=== PATIENT | female | born 1945 | race Caucasian/White ===

== ENCOUNTER 2025-08-19 21:37 | Emergency (ER) | payer MEDICARE, BC, SELFPAY ==
[2025-08-19] VITALS (11 sets, daily range): BP systolic 178–220; BP diastolic 74–92; PULSE 68–74; RESP 12–16; TEMP 36.2; O2SAT 96–100; BMI 22.6
--- NOTE | 2025-08-19 22:14 | ED_ITS ---
HPI - Dizziness General Chief Complaint: Dizziness Stated Complaint: Dizziness, headache Time Seen by Provider: 08/19/25 22:13 Source: patient and family Mode of arrival: Ambulatory History of Present Illness HPI Narrative: 79-year-old female from [place] currently traveling by cruise ship on vacation with her , ship docked now at [facility], next port of call [facility] and then to [facility], then [facility], before their flight back to home state of [place] in a few days. History of prior vetigo episodes, also with history of spontaneuos ?minor brain bleed? 3 years ago in [place] treated without neurosurgical interventions, taking daily aspirin. This evening prior to arrival had sudden oonset atraumatic right-sided headache and dizziness, both symptoms seemed to be improved without specific treatment. No focal weakness face arm or leg. No focal numbness to face arm or leg. Denies visual changes, trouble with speech, trouble with swallowing. Seems recovered from headache and dizziness symptoms. Related Data Allergies Allergy/AdvReac Type Severity Reaction Status Date / Time No Known Drug Allergies Allergy Verified 08/19/25 21:58 Patient History Social History Smoking Status: Never smoker Smoking Status: Never smoker Alcohol type: wine Exam Narrative Exam Narrative: GENERAL: Well-developed patient, in mild distress. HEAD: Atraumatic. Normocephalic. EYES: Pupils equal round and reactive. Extraocular motions intact. No scleral icterus. No injection or drainage. ENT: Nose without bleeding, purulent drainage. Throat without erythema, tonsillar hypertrophy or exudate. Airway patent. NECK: Trachea midline. Non tender CARDIOVASCULAR: Regular rate and rhythm without murmurs, gallops, or rubs. RESPIRATORY: Clear to auscultation. Breath sounds equal bilaterally. No wheezes, rales, or rhonchi. GASTROINTESTINAL: Abdomen soft, non-tender, nondistended. EXTREMITIES: No edema or joint tenderness. BACK: Nontender without deformity or crepitance. No flank tenderness. NEURO: AOx3. CN exam normal as tested. Motor 5/5 BUE and BLE, no drifts. Performed finger to nose, rapid alternating hand flip movements and [id number]-dt-qgrk movements well. Sensation intact to light touch face arms leg symmetrically. Clear speeh, no obvious cognitive deficits, at her speech and MSE baseline per at bedside. SKIN: No rash or erythema of visible areas Initial Vital Signs Initial Vital Signs: Vital Signs Temperature 97.2 F L 08/19/25 21:58 Pulse Rate 68 08/19/25 21:58 Respiratory Rate 16 08/19/25 21:58 Blood Pressure 220/91 H 08/19/25 21:58 Pulse Oximetry 100 08/19/25 21:58 Oxygen Delivery Method Room Air 08/19/25 21:58 Course Orders Ordered: ED Orders 08/19/25 22:[address] angio head and neck Stat EKG-12 Lead Stat 08/19/25 22:20 Complete Blood Count AUTO DIFF Stat Comprehensive Metabolic Panel Stat Ethanol (ETOH) Stat PTT Partial Thromboplastin Nabil Stat Prothrombin Time INR Stat Troponin & CK Cardiac Panel Stat 08/19/25 22:42 EKG-12 Lead Stat 08/19/25 22:53 COVID19 -Nasal RAPID Stat 08/19/25 23:38 Urinalysis and Microscopic Stat Urine Drug Screen, Rapid Stat 08/20/25 00:50 Troponin I Stat Vital Signs Vital signs: Vital Signs - 8 hr 08/19/25 21:58 08/19/25 22:21 08/19/25 22:30 Temperature 97.2 F L Pulse Rate 68 Respiratory Rate 16 Blood Pressure 220/91 H 220/92 H 183/77 H Pulse Oximetry 100 Oxygen Delivery Method Room Air 08/19/25 22:34 08/19/25 22:35 08/19/25 22:35 Temperature Pulse Rate 72 71 Respiratory Rate Blood Pressure 196/81 H Pulse Oximetry 96 96 Oxygen Delivery Method 08/19/25 22:45 08/19/25 22:45 08/19/25 23:00 Temperature Pulse Rate 74 71 Respiratory Rate 13 12 Blood Pressure 202/84 H Pulse Oximetry 98 98 Oxygen Delivery Method Room Air 08/19/25 23:00 08/19/25 23:16 08/19/25 23:16 Temperature Pulse Rate 70 Respiratory Rate 12 Blood Pressure 178/74 H 183/77 H Pulse Oximetry 96 Oxygen Delivery Method 08/19/25 23:30 08/19/25 23:30 08/19/25 23:42 Temperature Pulse Rate 68 74 Respiratory Rate 16 16 Blood Pressure 187/79 H Pulse Oximetry 99 98 Oxygen Delivery Method 08/19/25 23:42 08/19/25 23:45 08/19/25 23:45 Temperature Pulse Rate 69 Respiratory Rate 14 Blood Pressure 207/84 H 197/81 H Pulse Oximetry 96 Oxygen Delivery Method Room Air 08/20/25 00:00 08/20/25 00:03 08/20/25 00:03 Temperature Pulse Rate 69 71 Respiratory Rate 15 12 Blood Pressure 171/79 H Pulse Oximetry 98 95 Oxygen Delivery Method 08/20/25 00:15 08/20/25 00:15 08/20/25 00:30 Temperature Pulse Rate 67 70 Respiratory Rate 17 14 Blood Pressure 155/68 H Pulse Oximetry 94 98 Oxygen Delivery Method Room Air 08/20/25 00:30 08/20/25 00:45 08/20/25 00:45 Temperature Pulse Rate 72 Respiratory Rate 14 Blood Pressure 161/70 H 170/71 H Pulse Oximetry 99 Oxygen Delivery Method 08/20/25 01:00 08/20/25 01:01 08/20/25 01:01 Temperature Pulse Rate 77 74 Respiratory Rate 15 12 Blood Pressure 199/83 H Pulse Oximetry 94 96 Oxygen Delivery Method Room Air Room Air 08/20/25 01:15 08/20/25 01:15 08/20/25 01:30 Temperature Pulse Rate 70 71 Respiratory Rate 20 Blood Pressure 161/71 H Pulse Oximetry 97 96 Oxygen Delivery Method 08/20/25 01:30 08/20/25 01:45 08/20/25 01:45 Temperature Pulse Rate 78 Respiratory Rate 19 Blood Pressure 166/70 H 165/62 H Pulse Oximetry 96 Oxygen Delivery Method Room Air MDM - Dizziness Lab Data Attestation: I reviewed the patient's lab results. Lab results narrative: POC glucose 154. White blood cell count 8100, hemoglobin 12.9, platelets adequate. Glucose 165. BUN 21 with creatinine 0.71. Serum CO2 26, creatinine 3.7 normal, sodium 135 slight low. AST slight elevation, other liver functions unremarkable. INR 0.9 normal. Troponin 0.066 indeterminate range. BAL negative. 08/19/25 22:20 08/19/25 22:20 Labs: Lab Results 08/19/25 08/19/25 08/19/25 Range/Units 22:15 22:20 22:53 WBC 8.1 (4.5-11.0) X10^3/uL RBC 4.50 (4.0-5.2) X10^6/uL Hgb 12.9 (12.0-16.0) g/dL Hct 37.8 (36-46) % MCV 84.1 (80-100) fL MCH 28.7 (26-34) PG MCHC 34.1 (30-36) % RDW 14.2 (11.6-14.8) % Plt Count 287 (150-400) X10^3/uL Neut % (Auto) 66.2 (50-75) % Lymph % (Auto) 22.4 L (25-40) % [place] % (Auto) 9.6 (3-14) % Eos % (Auto) 1.5 L (2-4) % Baso % (Auto) 0.3 (0-2) % Neut # (Auto) 5400 (9121-3023) /uL Lymph # (Auto) 1800 (8870-7903) /uL [place] # (Auto) 800 (0-900) /uL Eos # (Auto) 100 (0-450) /uL Baso # (Auto) 0 (0-100) /uL PT 10.6 (9.4-12.5) SECONDS INR 0.9 (0.9-1.3) APTT 27 (25.1-36.5) SECONDS Sodium 135 L (137-145) mmol/L Potassium 3.7 (3.4-5.1) mmol/L Chloride 99 (98-107) mmol/L Carbon Dioxide 26 (22-32) mmol/L BUN 21 H (7-17) mg/dL Creatinine 0.71 (0.52-1.04) mg/dL Estimated GFR > 60 (>60) mL/min BUN/Creatinine Ratio 29.6 H (6-22) Glucose 165 H (70-99) mg/dL POC Whole Bld Glucose 154 H (70-99) mg/dL Calcium 9.5 (8.4-10.2) mg/dL Total Bilirubin 0.3 (0.2-1.3) mg/dL AST 38 H (14-36) IU/L ALT 27 (<35) IU/L Alkaline Phosphatase 104 (38-126) U/L Total Creatine Kinase 143 H (30-135) U/L Troponin I 0.066 H (0.01-0.034) ng/mL Total Protein 7.9 (6.3-8.2) g/dL Albumin 4.5 (3.5-5.0) g/dL Globulin 3.4 (1.7-4.1) g/dL Albumin/Globulin Ratio 1.3 (1.0-2.8) Urine Color Urine Appearance Urine pH (4.5-8.0) Ur Specific [place] (1.000-1.035) Urine Protein (Negative) Urine Glucose (UA) (Negative) g/dL Urine Ketones (NEGATIVE) Urine Occult Blood (Negative) Urine Nitrate (Negative) Urine Bilirubin (NEGATIVE) Urine Urobilinogen (0.2) E.U./dL Ur Leukocyte Esterase (NEGATIVE) Urine RBC (0-5/HPF) Urine WBC (0-5/HPF) Ur Squamous Epith Cells (0-5/HPF) Urine Bacteria (None) Ur Culture Indicated? Vol Urine Centrifuged U Opiates 300ng/mL cut (Negative) Ur Oxycodone Screen (Negative) Urine Methadone Screen (Negative) Ur Barbiturates Screen (Negative) U Tricyclic Antidepress (Negative) Ur Phencyclidine Scrn (Negative) Ur Amphetamines Screen (Negative) U Methamphetamines Scrn (Negative) Ur MDMA Scrn (Ecstasy) (Negative) U Benzodiazepines Scrn (Negative) Urine Cocaine Screen (Negative) U Marijuana (THC) Screen (Negative) Urine Specific [place] (Normal) Ethyl Alcohol < 10 (<10) mg/dL Ur Creatinine (Normal) SARS-CoV-2 (PCR) Negative (Negative) 08/19/25 08/19/25 08/20/25 Range/Units 23:38 23:38 00:50 WBC (4.5-11.0) X10^3/uL RBC (4.0-5.2) X10^6/uL Hgb (12.0-16.0) g/dL Hct (36-46) % MCV (80-100) fL MCH (26-34) PG MCHC (30-36) % RDW (11.6-14.8) % Plt Count (150-400) X10^3/uL Neut % (Auto) (50-75) % Lymph % (Auto) (25-40) % [place] % (Auto) (3-14) % Eos % (Auto) (2-4) % Baso % (Auto) (0-2) % Neut # (Auto) (3108-4582) /uL Lymph # (Auto) (9912-0585) /uL [place] # (Auto) (0-900) /uL Eos # (Auto) (0-450) /uL Baso # (Auto) (0-100) /uL PT (9.4-12.5) SECONDS INR (0.9-1.3) APTT (25.1-36.5) SECONDS Sodium (137-145) mmol/L Potassium (3.4-5.1) mmol/L Chloride (98-107) mmol/L Carbon Dioxide (22-32) mmol/L BUN (7-17) mg/dL Creatinine (0.52-1.04) mg/dL Estimated GFR (>60) mL/min BUN/Creatinine Ratio (6-22) Glucose (70-99) mg/dL POC Whole Bld Glucose (70-99) mg/dL Calcium (8.4-10.2) mg/dL Total Bilirubin (0.2-1.3) mg/dL AST (14-36) IU/L ALT (<35) IU/L Alkaline Phosphatase (38-126) U/L Total Creatine Kinase (30-135) U/L Troponin I 0.047 H (0.01-0.034) ng/mL Total Protein (6.3-8.2) g/dL Albumin (3.5-5.0) g/dL Globulin (1.7-4.1) g/dL Albumin/Globulin Ratio (1.0-2.8) Urine Color Yellow Urine Appearance Clear Urine pH 6.0 Normal (4.5-8.0) Ur Specific [place] <=1.005 (1.000-1.035) Urine Protein Negative (Negative) Urine Glucose (UA) Negative (Negative) g/dL Urine Ketones Negative (NEGATIVE) Urine Occult Blood Trace-intact (Negative) Urine Nitrate Negative (Negative) Urine Bilirubin Negative (NEGATIVE) Urine Urobilinogen 0.2 (0.2) E.U./dL Ur Leukocyte Esterase Negative (NEGATIVE) Urine RBC 0-1/hpf (0-5/HPF) Urine WBC None seen (0-5/HPF) Ur Squamous Epith Cells 0-1 /hpf (0-5/HPF) Urine Bacteria None seen (None) Ur Culture Indicated? Cult not indicated Vol Urine Centrifuged 10ml (spun) U Opiates 300ng/mL cut Negative (Negative) Ur Oxycodone Screen Negative (Negative) Urine Methadone Screen Negative (Negative) Ur Barbiturates Screen Negative (Negative) U Tricyclic Antidepress Negative (Negative) Ur Phencyclidine Scrn Negative (Negative) Ur Amphetamines Screen Negative (Negative) U Methamphetamines Scrn Negative (Negative) Ur MDMA Scrn (Ecstasy) Negative (Negative) U Benzodiazepines Scrn Negative (Negative) Urine Cocaine Screen Negative (Negative) U Marijuana (THC) Screen Negative (Negative) Urine Specific [place] Normal (Normal) Ethyl Alcohol (<10) mg/dL Ur Creatinine Normal (Normal) SARS-CoV-2 (PCR) (Negative) Point of Care Testing Glucose POC [address] scan - head: Radiologist's Impression: [address] [address] [address] Scan Report Signed Patient: Verenice Corrales MR#: [id number] : 1945 Acct:[id number] Age/Sex: 79 / F Date of Service: 08/19/25 Loc: ED Accession Number: [id number] Procedure: CT Stroke Ordering Provider: Chucky Marmolejo MD PROCEDURE: CT STROKE INDICATIONS: GRACIA, dizzy TECHNIQUE: Noncontrast 4.5 mm thick angled axial sections acquired from the foramen magnum to the vertex, with coronal reformats. For radiation dose reduction, the following was used: automated exposure control, adjustment of mA and/or kV according to patient size. COMPARISON: None. FINDINGS: Image quality: Diagnostic. CSF spaces: Basal cisterns are patent. No extra-axial fluid collections. Ventricles are normal in size and shape. Brain: No midline shift. No intracranial mass effect or hemorrhage. Basal ganglia calcifications. No area of hypodensity in a large vascular distribution to suggest acute infarction. Periventricular hypodensity consistent with chronic microvascular ischemic change. Age-related parenchymal loss. Skull and face: Calvarium and visualized facial bones are intact, without suspicious lesions. Sinuses: Visualized sinuses and mastoids are clear. IMPRESSION: No acute intracranial hemorrhage. Comment: Findings were discussed with Chucky Marmolejo at 10:39 p.m. This study fulfills neurological imaging criteria for inclusion or exclusion of acute stroke therapies based on available published neurological imaging guidelines. Dictated by: Jair Gibbons M.D. on 08/19/2025 at 22:36 Approved by: Jair Gibbons M.D. on 08/19/2025 at 22:39 CTA - brain/neck: Radiologist's Impression: [address] [address] [address] Scan Report Signed Patient: Verenice Corrales MR#: [id number] : 1945 Acct:[id number] Age/Sex: 79 / F Date of Service: 08/19/25 Loc: ED Accession Number: [id number] Procedure: CT angio head and neck Ordering Provider: Chucky Marmolejo MD PROCEDURE: CT ANGIO HEAD AND NECK INDICATIONS: GRACIA, dizzy TECHNIQUE: After the administration of intravenous contrast, 1 mm thick sections acquired from the aortic arch through the [place] of [place]. 3-dimensional xuochtv-wqcviftlu-lusiohcvwk (MIP) and/or volume rendering reformats were acquired of the central intracranial vasculature and neck separately. For radiation dose reduction, the following was used: automated exposure control, adjustment of mA and/or kV according to patient size. COMPARISON: [facility], CT, CT STROKE, 08/19/2025, 22:22. FINDINGS: Image quality: Diagnostic. Cerebral CT Angiogram: Internal carotid arteries: No acute findings. Intracranial ICA are patent with no significant stenosis. No occlusion. No aneurysm. Anterior cerebral arteries: Unremarkable. No significant stenosis. No occlusion. No aneurysm. Middle cerebral arteries: Unremarkable. No significant stenosis. No occlusion. No aneurysm. Posterior cerebral arteries: origin of the left [place], variant anatomy. No significant stenosis. No occlusion. No aneurysm. Basilar artery: Unremarkable. No significant stenosis. No occlusion. No aneurysm. Vertebral arteries: Unremarkable as visualized. Dural venous sinuses: Unremarkable given phase of enhancement. Other: Arterial phase appearance of the brain parenchyma is unremarkable. Neck CT Angiogram: Internal carotid arteries: Dense plaque at the right carotid bulb. Moderate plaque at the left carotid bulb. Less than 50% stenosis. No significant stenosis. No dissection or occlusion. Common carotid arteries: Unremarkable. No significant stenosis. No dissection or occlusion. External carotid arteries: Unremarkable. No occlusion. Vertebral arteries: Unremarkable. No significant stenosis. No dissection or occlusion. Aortic Arch and Mediastinum: Partially visualized aortic arch unremarkable without evidence of aneurysm. Origins of the great vessels unremarkable. Other: Arterial phase soft tissues of the neck and chest are unremarkable. Bones: Xzid-ne-ebttodnv degenerative changes of the cervical spine. IMPRESSION: 1. No large vessel occlusion. 2. Suspected less than 50% stenosis at the bilateral ICA. Dense plaque at the right carotid bulb. Follow-up ultrasound Doppler may be helpful. Any quantitative measurements of stenosis were performed using NASCET criteria. Dictated by: Jair Gibbons M.D. on 08/20/2025 at 0:48 Approved by: Jair Gibbons M.D. on 08/20/2025 at 0:56 ECG Data Attestation: I personally reviewed and interpreted this ECG as follows: Interpretation: 2327, normal sinus rhythm with rate of 68, no obvious ST segment elevation or depression changes. LVH changes noted. VA 190, QRS 82, QTC 450. MDM Narrative Medical decision making narrative: 79-year-old female visiting the area on cruise boat, had sudden onset of dizziness, room spinning sensation, history of vertigo in the past, quite unbalanced, had nausea but no emesis. No focal neurological findings. Had headache that seemed to improve. Elevated blood pressure at triage. CT head, CT head and neck vessel imaging ordered. Initial printed EKG had significant artifact and was discarded. Repeated after imaging. EKG of record shows sinus rhythm with rate 68, no obvious ischemic changes Lab data: POC glucose 154. White blood cell count 8100, hemoglobin 12.9, platelets adequate. Glucose 165. BUN 21 with creatinine 0.71. Serum CO2 26, potassium 3.7 normal, sodium 135 slight low. AST slight elevation, other liver functions unremarkable. INR 0.9 normal. Troponin 0.066 indeterminate range[address] BAL negative. CT head noncontrast. No acute changes. See radiology report. CT head and neck vessels. IMPRESSION: 1. No large vessel occlusion. 2. Suspected less than 50% stenosis at the bilateral ICA. Dense plaque at the right carotid bulb. Follow-up ultrasound Doppler may be helpful. See radiology report. Interval repeat troponin 0.047 indeterminant but decreased. Will consult neurology for disposition plan. 0150, discussed with [facility] stroke neurology Dr Russell by phone who reviewed images. Could offer admit for further TIA workup. Could start on aspirin and have further workup as an outpatient back in home [facility] at conclusion of ship cruise trip. Recommended options relayed to patient with at bedside. Patient admitted that she actually does take aspirin, has not missed doses, no other blood thinner medications. Also has history of remote ?small bleed? 3 years ago treated non operatively. We will call Neurology again to see if any difference in recommendations with additional information. Patient however seems motivated to try to returned to the cruise ship incomplete her trip. Discussed again with neuro, no change in options recommended. Patient prefers to continue onward via cruise ship and follow-up in her home state [place] in a few days after trip return. We discussed medical resource facilities next days at their upcoming ports of call in [place], [facility], [facility]. Advised re-check if symptoms recur but very limited resources Sunday next stop. She will continue daily aspirin for now. Further workup as outpatient for now per patient preference. aware of patient decision. DC home with [facility]. No afterhours taxi or bus services. Local afterhours transport greatly appreciated, to nearby cruise ship [facility] just 1.5 miles away, before scheduled ship departure 0600 in the next couple hours. Discharge Plan Departure Patient Disposition: Home Clinical Impression: Dizziness Activity Restrictions/Additional Instructions: History of prior intracranial hemorrhage about 3 years ago treated nonoperatively in home [facility]. Current cruise ship vacation in progress with port of call here in [facility]. Having acute onset of dizziness vertigo, history of vertigo in the past, but also right sided headache which he is usually not present. Symptoms seemed to be resolved before triage. Reassuring neurological exam. Initial elevated blood pressure improved without specific treatment. CT head noncontrast study showed no acute changes. CT angiogram of the head and neck vessels which did show some bilateral carotid narrowing but less than 50%, not actionable at this time but important to have future follow up. No acute changes on imaging. EKG not suggestive of heart attack at this time. Electrolytes another serum studies unremarkable. Images were transmitted with tele neurology consultation at [facility] with Dr. Russell, who reviewed images, case discussed, advised continued use of your daily aspirin for now. Could consider admission here for TIA/stroke workup that might include echocardiogram ultrasound of the heart and MRI of the brain studies. You declined admission here, and wanted to return to the cruise ship for ongoing passage. Next ports of call [place], then [facility], then terminal port of call in [facility], with subsequent flight back to your home state of [place]. Continue taking your aspirin for now. Further workup advised once in your home state of [place]. Follow up urgently emergently with ports of call Medical Services listed above prior to your flight to your home state. Copies of CT and CT angiography reports provided, does show subsequent providers in your home state or other providers in route if you need to seek care before your flight home. Good luck with your travels and wishes to in enjoy the rest of your trip in the [facility]. Stand Alone Forms: Patient Portal/API
--- NOTE | 2025-08-19 22:14 | EKG_ITS ---
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
[2025-08-19 22:31] LABS: Add Manual Diff / Slide Review NO; Hematocrit 37.8 % (36-46); Hemoglobin 12.9 g/dL (12.0-16.0); Lymphocytes Absolute Auto 1800 /uL (1100-4500); Mean Corpuscular HGB Conc 34.1 % (30-36); Mean Corpuscular Hemoglobin 28.7 PG (26-34); Mean Corpuscular Volume 84.1 fL (80-100); Platelet Count 287 X10^3/uL (150-400)
--- NOTE | 2025-08-19 22:48 | PC.NURSE ---
Patient reports dizziness has improved significantly since getting back to room in ED. Provider Jaleel is aware.
[2025-08-19 22:50] LABS: INR 0.9 (0.9-1.3); Prothrombin Time 10.6 SECONDS (9.4-12.5)
[2025-08-19 22:53] LABS: PTT Partial Thromboplastin Tim 27 SECONDS (25.1-36.5)
[2025-08-19 23:04] LABS: Alanine Aminotransferase 27 IU/L (<35); Albumin 4.5 g/dL (3.5-5.0); Albumin Globulin Ratio 1.3 (1.0-2.8); Alkaline Phosphatase 104 U/L (38-126); Blood Urea Nitrogen 21 mg/dL (7-17); Calcium 9.5 mg/dL (8.4-10.2); Carbon Dioxide 26 mmol/L (22-32); Chloride 99 mmol/L (98-107); Creatine Kinase 143 U/L (30-135); Estimated Glomerular Filt Rate > 60 mL/min (>60); Ethanol (ETOH) < 10 mg/dL (<10); Globulin 3.4 g/dL (1.7-4.1); Glucose 165 mg/dL (70-99); HEMOLYSIS 17 (0-50); Potassium 3.7 mmol/L (3.4-5.1); Sodium 135 mmol/L (137-145); Total Protein 7.9 g/dL (6.3-8.2)
[2025-08-19 23:15] LABS: Troponin I 0.066 ng/mL (0.01-0.034)
--- NOTE | 2025-08-19 23:27 | EKG_ITS ---
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
[2025-08-19 23:49] LABS: UR Morphine/Opiate cutoff 300 Negative (Negative); Ur Specific Gravity Normal (Normal); Urine MDMA Negative (Negative); Urine Methamphetamines Negative (Negative); Urine Tetrahydrocannabinol Negative (Negative); Urine Tricyclic Antidepressant Negative (Negative)
[2025-08-19 23:59] LABS: COVID19 -Nasal RAPID Negative (Negative)
[2025-08-20] VITALS (14 sets, daily range): BP systolic 155–199; BP diastolic 62–83; PULSE 67–83; RESP 12–28; O2SAT 94–99
[2025-08-20 00:14] LABS: Appearance Urine UA CLEAR; Bilirubin Urine UA NEGATIVE (NEGATIVE); Color Urine UA YELLOW; Glucose Urine UA NEGATIVE (Negative); Ketones Urine UA NEGATIVE (NEGATIVE); Leukocyte Esterase Urine UA NEGATIVE (NEGATIVE); Nitrite Urine UA NEGATIVE (Negative); Occult Blood Urine UA TRACE-INTACT (Negative); Protein Urine UA NEGATIVE (Negative); Specific Gravity Urine UA <=1.005 (1.000-1.035); Urobilinogen Urine UA 0.2 E.U./dL (0.2)
[2025-08-20 00:17] LABS: pH Urine UA 6.0 (4.5-8.0)
[2025-08-20 00:23] LABS: Culture Indicated Urine Cult Not Indicated
[2025-08-20 01:36] LABS: Troponin I 0.047 ng/mL (0.01-0.034)
== END 2025-08-20 03:51 | disposition home or self-care (01) ==
PROVIDERS: Emergency Provider Emergency Medicine
DX: R42 Dizziness and giddiness (principal); R51.9 Headache, unspecified
CPT/HCPCS: 36415; 70450; 70496; 70498; 80053; 80305; 80320; 81001; 82550; 82962; 84484; 85025; 85610; 85730; 87635; 93005; 93010; 99284; Q9967